=== PATIENT | female | born 1995 | race Caucasian/White ===

== ENCOUNTER 2023-11-12 17:32 | Emergency (ER) | payer MEDICAID ==
[~2023-11-12] VITALS: Ht 149.9 cm; Wt 61.2 kg
[2023-11-12 17:51] VITALS: BP 100/77; PULSE 69; RESP 18; TEMP 97.9; O2SAT 100
[2023-11-12 18:10] VITALS: BP 100/77; PULSE 69; RESP 18; TEMP 97.9; O2SAT 100
[2023-11-12 18:49] LABS: APPEARANCE,URINE SL CLOUDY (CLEAR); BILIRUBIN,URINE NEGATIVE (NEGATIVE); BLOOD, URINE 3+ (NEGATIVE); COLOR,URINE YELLOW (YELLOW); LEUKOCYTE ESTERASE ,URINE 3+ (NEGATIVE); NITRITE, URINE NEGATIVE (NEGATIVE); PROTEIN,URINE 1+ (NEGATIVE); UGLUCOSE NEGATIVE (NEGATIVE); UROBILINOGEN,URINE 0.2 EU/dL (0.2 - 1)
[2023-11-12 18:54] LABS: RBC,URINE 20-50 /HPF (0-5); WBC,URINE 16-25 (MOD) /HPF (0-5)
[2023-11-12 18:55] LABS: BACTERIA,URINE 2+ /HPF (None Seen); MUCUS,URINE None Seen /LPF (None Seen); SQUAMOUS EPITHELIAL CELL,UR 4-10 (MOD) /LPF (0-3 (FEW))
[2023-11-12] MEDS ORDERED: METR-435 PO (19:33)
[2023-11-12] MEDS ORDERED: DOXY-487 PO (19:33)
[2023-11-12] MEDS ORDERED: cefTRIAXone 500 MG VIAL ONE (20:11)
[2023-11-12] MEDS: KETOROLAC 30 MG/ML VIAL IM ONE (20:25)
[2023-11-12] MEDS: cefTRIAXone 500 MG in LIDOCAINE MPF 1% 1 ML IM ONE (20:27)
== END 2023-11-12 20:29 | disposition home or self-care (01) ==
LOC: MED 17:32
DX: N73.9 Female pelvic inflammatory disease, unspecified (principal); N76.0 Acute vaginitis; B96.89 Other specified bacterial agents as the cause of diseases classified elsewhere; Z79.2 Long term (current) use of antibiotics
CPT/HCPCS: 81001; 81025; 87086; 87210; 96372; 99284; J0696; J1885; 87491